=== PATIENT | female | born 1990 | race Caucasian/White ===

== ENCOUNTER 2022-10-24 11:32 | Emergency (ER) | payer OTHER ==
[~2022-10-24] VITALS: Ht 170.2 cm; Wt 99.8 kg
[2022-10-24 12:12] VITALS: BP 128/108
[2022-10-24] MEDS ORDERED: CYCL10 PO (14:35)
[2022-10-24] MEDS ORDERED: Prednisone20 MG PO (14:35)
[2022-10-24] MEDS ORDERED: Ultram50 MG PO (14:35)
== END 2022-10-24 15:00 | disposition home or self-care (01) ==
LOC: ER 11:32
DX: M54.41 Lumbago with sciatica, right side (principal); F17.200 Nicotine dependence, unspecified, uncomplicated
CPT/HCPCS: 96372; 99282-25; A9270; J1885

== ENCOUNTER → 2022-11-01 | Outpatient (CLI) | payer OTHER ==
[~2022-11-01] MED LIST: CYCL10 PO; Prednisone20 MG PO; Ultram50 MG PO
== END | disposition home or self-care (01) ==
LOC: LAB SHORT 10:04 → LAB 10:04
DX: M54.16 Radiculopathy, lumbar region (principal)
CPT/HCPCS: 87086

== ENCOUNTER 2024-04-22 09:30 | Emergency (ER) | payer OTHER ==
[~2024-04-22] VITALS: Ht 170.2 cm; Wt 90.7 kg
[~2024-04-22 09:30] MED LIST changes: +MELO7.5 PO; +NEURONTIN300 MG PO; +Prednisone10 MG PO
[2024-04-22 09:47] VITALS: BP 133/73
[2024-04-22 10:08] LABS: BASOPHILS ABSOLUTE AUTO 0.05 K/mm3 (0.00-0.23); BASOPHILS PERCENT AUTO 1 % (0-2); EOSINOPHILS ABSOLUTE AUTO 0.26 K/mm3 (0.00-0.68); EOSINOPHILS PERCENT AUTO 3 % (0-6); Hematocrit 39.3 % (33.0-51.0); Hemoglobin 13.2 g/dL (11.5-16.0); IMMATURE GRAN ABSOLUTE AUTO 0.02 K/mm3 (0.00-0.10); IMMATURE GRAN PERCENT AUTO 0 % (0-1); LYMPHOCYTES PERCENT AUTO 30 % (21-46); MONOCYTES PERCENT AUTO 5 % (4-13); Mean Corpuscular HGB 29.5 pg (26.0-34.0); Mean Corpuscular HGB Conc 33.6 g/dL (31.5-36.5); Mean Corpuscular Volume 88 fL (80-100); NEUTROPHILS ABSOLUTE AUTO 4.69 K/mm3 (1.96-9.15); NEUTROPHILS PERCENT AUTO 61 % (41-73); Platelet Count 349 K/mm3 (150-400); RDW Coefficient Variation 13.5 % (11.7-14.2); RDW Standard Deviation 43.8 fL (35.1-46.3); Red Blood Cell Count 4.48 M/mm3 (3.80-5.20); White Blood Cell Count 7.72 K/mm3 (4.00-11.30)
[2024-04-22 10:20] LABS: International Normalized Ratio 0.95; Prothrombin Time Results 10.2 Sec (9.7-11.5)
[2024-04-22 10:38] LABS: Alanine Aminotransfer (ALT/SGP 36 U/L (12-78); Albumin, Blood 3.4 g/dL (3.4-5.0); Albumin/Globulin Ratio 1.1 (0.8-1.8); Alk Phos 100 U/L (50-136); Anion Gap 6 mmol/L (3-11); Aspartate Aminotrans (AST/SGOT 21 U/L (12-37); Bilirubin, Total 0.3 mg/dL (0.1-1.0); Blood Urea Nitrogen 13 mg/dL (8-24); Bun/Creatinine Ratio 21.3 (12.0-20.0); CO2, Blood 25 mmol/L (21-32); Calcium, Blood 9.2 mg/dL (8.5-10.1); Chloride, Blood 114 mmol/L (98-108); Creatinine, Blood 0.61 mg/dL (0.40-1.00); Ethanol (Alcohol), Blood, Med <3 mg/dL; Globulin, Blood 3.2 g/dL (2.2-4.0); Glomerular Filtration Rate 122 (60-); Glucose, Blood 101 mg/dL (70-99); Potassium, Blood 4.1 mmol/L (3.5-5.5); Sodium, Blood 141 mmol/L (136-145); Total Protein, Blood 6.6 g/dL (6.4-8.2)
[2024-04-22 10:51] LABS: Source, Urine Clean Catch
[2024-04-22] MEDS ORDERED: LIDO700A20 TOP (11:05)
[2024-04-22] MEDS ORDERED: MOTRIN IB200 MG PO (11:05)
[2024-04-22] MEDS ORDERED: CYCL10 PO (11:05)
[2024-04-22] MEDS ORDERED: ACET500 PO (11:05)
[2024-04-22 11:25] LABS: Bilirubin, Urine Neg (Neg); Blood, Urine 3+ (Neg); Glucose Qualitative, Urine Neg (Neg); Ketones, Urine Neg (Neg); Leukocyte Esterase, Urine Neg (Neg); Nitrite, Urine Neg (Neg); Protein, Urine Neg (Neg); Specific Gravity, Urine 1.015 (1.003-1.022); Urobilinogen, Urine NORM (Normal)
[2024-04-22 11:43] LABS: Appearance, Urine Hazy (Clear); Color, Urine Yellow (P-Yellow)
[2024-04-22 11:45] LABS: Bacteria Rare /hpf; Squamous Epithelial Cells Few /hpf (Few); White Blood Cells, Urine Not Seen /hpf (0-5)
[2024-04-22] MEDS ORDERED: VARENICLINE TART1 M2 PO (11:50)
[2024-04-22] MEDS ORDERED: Adderall Xr 2020 MG PO (11:50)
[2024-04-22] MEDS ORDERED: MONT10T PO (11:50)
[2024-04-22 11:59] LABS: U Amphetamine Screen DETECTED; U Barbituate Screen Not Detected; U Benzodiazapine Screen Not Detected; U Buprenorphine Screen Not Detected; U Cannabinoids Screen DETECTED; U Cocaine Screen Not Detected; U Methadone Screen Not Detected; U Methamphetamine Screen Not Detected; U Opiates Screen Not Detected; U Oxycodone Screen Not Detected; U Phencyclidine Screen Not Detected
[2024-04-22] MEDS ORDERED: Diphth,Pertuss(Acell),Tet Vac 0.5 ML VIAL IM ONE (12:00)
== END 2024-04-22 12:30 | disposition home or self-care (01) ==
LOC: ER 09:30
PROVIDERS: Student in an Organized Health Care Education/Training Program
DX: S80.02XA Contusion of left knee, initial encounter (principal); V89.2XXA Person injured in unspecified motor-vehicle accident, traffic, initial encounter; Z79.52 Long term (current) use of systemic steroids; Z79.899 Other long term (current) drug therapy
CPT/HCPCS: 70450; 71260; 72125; 73562-LT; 74177; 80053; 80320; 81001; 83690; 85025; 85610; 90471; 90715; 99285-25; Q9967

== ENCOUNTER → 2024-05-01 | Outpatient (CLI) | payer OTHER ==
[~2024-05-01] MED LIST changes: +ACET500 PO; +Adderall Xr 2020 MG PO; +LIDO700A20 TOP; +MONT10T PO; +MOTRIN IB200 MG PO; +VARENICLINE TART1 M2 PO
[2024-05-03 17:02] LABS: C. TRACHOMATIS BY TMA,THINPREP Negative (Negative); N. GONORRHOEAE BY TMA,THINPREP Negative (Negative); SPECIMEN SOURCE Cervical
== END ==
LOC: LAB 11:44 → LAB SHORT 11:44
PROVIDERS: Obstetrics & Gynecology
DX: Z01.419 Encounter for gynecological examination (general) (routine) without abnormal findings (principal); Z11.3 Encounter for screening for infections with a predominantly sexual mode of transmission
CPT/HCPCS: 87491; 87591

== ENCOUNTER → 2024-06-25 | Outpatient (CLI) | payer OTHER | LOC: LAB 07:56 → PLD 07:56 → LAB SHORT 07:56 | DX: A63.0 Anogenital (venereal) warts (principal) | CPT/HCPCS: 88305 ==